=== PATIENT | male | born 1950 | race Caucasian/White ===

== ENCOUNTER → 2018-09-02 | Outpatient (CLI) | payer BC ==
--- NOTE | 2018-09-02 14:10 | REP ---
Clinical: Foreign body. Technique: AP, lateral, bilateral oblique views of the right hand. Findings: A 15 x 2.0 mm curvilinear foreign body is identified within the soft tissues overlying the fifth metacarpal bone. No acute fracture dislocation. The osseous structures appear intact and unaffected. Impression: Metallic foreign body in the soft tissues overlying the fifth metacarpal bone. Electronically Signed by Tito Crain MD 09/02/2018 11:50 A
== END ==
LOC: M WUC 10:39
PROVIDERS: ATTEND Physician Assistant
DX: M79.644 Pain in right finger(s) (principal); M79.5 Residual foreign body in soft tissue